=== PATIENT | female | born 1945 | race Caucasian/White ===

== ENCOUNTER → 2016-05-30 | Outpatient (CLI) | payer OTHER ==
[2014-06-06 09:40] VITALS: BP 156/73
[~2016-05-30] MED LIST: GABA-585 PO; GADOBUTROL 10 MMOL/10 ML VIAL IV ONE; GLIP5TAB10 PO; LOSA25TA4 PO; METF500T4 PO; METO25TA9 PO
--- NOTE | 2016-05-30 11:44 | KCIC ---
BRAIN WO/W CONTRAST Indication: Reason For Study Reason: TRIGEMINAL NEURALGIA / Spl. Instructions: 8cc Gadavist. CT sent to PACS / History: Rt facial numbness 6 mnths-1 yr."Electric shock" feeling Rt side in March COMPARISON: CT head from June 06, 2014 TECHNIQUE: Axial diffusion weighted imaging was obtained. Additional sagittal T1, axial T1, axial FLAIR, and axial T2 weighted imaging of the brain was also performed. Postcontrast T1 weighted imaging was also performed after intravenous administration of gadolinium based contrast. FINDINGS: The basilar artery is tortuous in takes a course into the right pre pontine cistern. The basilar artery very closely approximates the cisternal portion of the right 5th cranial nerve but does not appear to cause mass effect upon it at the time of imaging. There is no abnormal mass or enhancement along the course of the 5th cranial nerve. Meckel's cave is normal bilaterally. No abnormal signal within the brain parenchyma. No abnormal intracranial enhancement. No evidence of acute intracranial hemorrhage. No restricted diffusion to indicate acute infarct. No extra-axial fluid collections. No midline shift or mass effect. Ventricular size is appropriate. Midline structures have a normal anatomic configuration. Pituitary gland and infundibulum are unremarkable. Basal cisterns are patent. Arterial flow voids at the skull base and major dural venous sinuses are maintained. Globes and orbits are unremarkable. Paranasal sinuses and mastoid air cells are clear. IMPRESSION: - No acute intracranial abnormality. No abnormal enhancement or mass. - The basilar artery is tortuous and extends into the right pre pontine cistern very closely approximating the cisternal portion of the right 5th cranial nerve. There is however, no significant mass effect identified during the time of imaging. The course of the 5th cranial nerves is otherwise benign. There is no abnormal enhancement. Electronically signed by: Dipak Regalado (May 30, 2016 11:43:11)
== END | disposition home or self-care (01) ==
LOC: KCIC MRI 09:36
PROVIDERS: ATTEND Psychiatry & Neurology Neurology with Special Qualifications in Child Neurology
DX: G50.0 Trigeminal neuralgia (principal)
CPT/HCPCS: 70553; 82565; A9585